=== PATIENT | male | born 1940 | race Caucasian/White ===

== ENCOUNTER 2016-11-26 10:17 | Outpatient (CLI) | payer MEDICARE, BC ==
--- NOTE | 2016-11-26 19:27 | XRAY Report ---
CHEST, PA AND LATERAL: 11/26/2016 CLINICAL HISTORY: Cough. COMPARISON: None. FINDINGS: Normal cardiac size is seen. Minimal prominence of the aortic arch is noted related to at herosclerosis. Mediastinum appears normal. Pulmonary parenchyma demonstrates minimal interstitial parenchymal disease about the right infrahilar region. This finding is of questionable age. Etiological considerations include mild scarring, mil d chronic bronchitis, and/or minimal bronchopneumonia. Recommend clinical correlation. A few minor granulomatous calcifications are seen about the left perihilar region. 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 Suggestion of minor old compression fracture of one of the lower thoracic vertebr ae. IMPRESSION: 1. MILD INTERSTITIAL PARENCHYMAL DISEASE IS SEEN IN THE RIGHT LOWER LOBE OF QUESTIONABLE AGE. ETIOL OGICAL CONSIDERATIONS INCLUDE MILD SCARRING, CHRONIC BRONCHITIS, AND/OR MINIMAL BRONCHOPNEUMONIA. RE COMMEND CLINICAL CORRELATION. 2. MINIMAL EVIDENCE OF OLD GRANULOMATOUS DISEASE. 3. MINOR OLD COMPRESSION FRACTURES NOTED IN ONE OF THE LOWER THORACIC VERTEBRAE. JOB #: [id number] EXT JOB #:[id number]
== END 2016-11-26 10:18 | disposition home or self-care (01) ==
LOC: DI 10:17
PROVIDERS: ATTEND Internal Medicine
DX: J84.9 Interstitial pulmonary disease, unspecified (principal); R63.4 Abnormal weight loss; Z79.899 Other long term (current) drug therapy; E78.5 Hyperlipidemia, unspecified; I10 Essential (primary) hypertension; M10.9 Gout, unspecified; Z12.5 Encounter for screening for malignant neoplasm of prostate
CPT/HCPCS: 36415; 71020; 80053; 80061; 82607; 83036; 84439; 84443; 84550; 85025; G0103; 84153

== ENCOUNTER 2016-11-26 10:39 | Outpatient (CLI) | payer MEDICARE, BC ==
[2016-11-26 11:30] LABS: BASOPHILS # (AUTO) 0.1 10^3/uL (0.0-0.1); EOSINOPHILS # (AUTO) 0.1 10^3/uL (0.0-0.7); EOSINOPHILS % (AUTO) 1.2 %; HCT - HEMATOCRIT 48.2 % (42.0-52.0); LYMPHOCYTES # (AUTO) 2.4 10^3/uL (1.5-3.5); LYMPHOCYTES % (AUTO) 35.8 %; MEAN CORPUSCULAR HEMOGLOBIN 34.1 pg (27.0-31.0); MEAN CORPUSCULAR HGB CONC 35.2 g/dL (32.0-36.0); MEAN CORPUSCULAR VOLUME 97.1 fL (80.0-94.0); MEAN PLATELET VOLUME 9.9 fL (7.4-11.4); MONOCYTES # (AUTO) 0.6 10^3/uL (0.0-1.0); MONOCYTES % (AUTO) 9.4 %; NEUTROPHILS # (AUTO) 3.6 10^3/uL (1.5-6.6); NEUTROPHILS % (AUTO) 52.6 %; NUCLEATED RED BLOOD CELLS AUTO 0.1 /100WBC; RED BLOOD COUNT 4.97 10^6/uL (4.70-6.10); RED CELL DISTRIBUTION WIDTH 13.7 % (12.0-15.0); UNCORRECTED WHITE BLOOD COUNT 6.8 x10^3/uL; WHITE BLOOD COUNT 6.8 x10^3/uL (4.8-10.8)
[2016-11-26 11:52] LABS: HEMOGLOBIN A1C 0.66 g/dL
[2016-11-26 12:00] LABS: ALBUMIN/GLOBULIN RATIO 1.4 (1.0-2.2); BILIRUBIN,TOTAL 1.3 mg/dL (0.2-1.0); BUN - BLOOD UREA NITROGEN 21 mg/dL (6-20); CARBON DIOXIDE - CO2 25 mmol/L (21-32); CHLORIDE 105 mmol/L (101-111); CHOL/HDL RATIO 4.1 (<5.0); CHOLESTEROL 199 mg/dL; CREATININE 0.9 mg/dL (0.6-1.2); GFR - MDRD 82 (>89); GLUCOSE 105 mg/dL (70-100); HDL CHOLESTEROL 49 mg/dL; LDL/HDL RATIO 2.8 (<3.6); POTASSIUM 4.3 mmol/L (3.5-5.0); SODIUM 139 mmol/L (135-145); TOTAL PROTEIN 7.3 g/dL (6.7-8.2); TRIGLYCERIDES 61 mg/dL; URIC ACID 5.3 mg/dL (2.6-7.2); VLDL CHOLESTEROL 12 mg/dL
[2016-11-26 12:43] LABS: THYROID STIMULATING HORMONE 1.4 uIU/mL (0.34-5.60)
== END 2016-11-26 10:40 | disposition home or self-care (01) ==
LOC: LAB 10:39
PROVIDERS: ATTEND Internal Medicine
DX: R63.4 Abnormal weight loss (principal); Z79.899 Other long term (current) drug therapy; Z12.5 Encounter for screening for malignant neoplasm of prostate; R73.9 Hyperglycemia, unspecified; E78.5 Hyperlipidemia, unspecified; I10 Essential (primary) hypertension; M10.9 Gout, unspecified
CPT/HCPCS: 36415; 80053; 80061; 82607; 83036; 84439; 84443; 84550; 85025; G0103; 84153

== ENCOUNTER 2016-11-30 08:00 | Outpatient (CLI) | payer MEDICARE | END 2016-11-30 08:01 | disposition home or self-care (01) | LOC: LAB.R 08:00 | PROVIDERS: ATTEND Internal Medicine | DX: R63.4 Abnormal weight loss (principal); I10 Essential (primary) hypertension; M10.9 Gout, unspecified; Z79.899 Other long term (current) drug therapy; Z12.5 Encounter for screening for malignant neoplasm of prostate; R73.9 Hyperglycemia, unspecified; E78.5 Hyperlipidemia, unspecified | CPT/HCPCS: 82270 ==

== ENCOUNTER 2017-04-25 06:19 | Day surgery (SDC) | payer MEDICARE, BC ==
[2017-04-25] MEDS ORDERED: ceFAZolin 2 GM/50 ML 2 GM/50 ML BAG IV ONE (06:40)
[2017-04-25] MEDS ORDERED: LACTATED RINGERS 1,000 ML IV ONE ×4 (06:56→11:04)
[2017-04-25] MEDS ORDERED: ePHEDrine 50 MG/ML AMP IVP ONE (08:20)
[2017-04-25] MEDS ORDERED: LIDOCAINE-MPF 2% 5 ML VIAL IM ONE (08:20)
[2017-04-25] MEDS ORDERED: ROCURONIUM 50 MG/5 ML VIAL IVP ONE (08:20)
[2017-04-25] MEDS ORDERED: PHENYLEPHRINE 50 MG/5 ML VIAL IV ONE (08:20)
[2017-04-25] MEDS ORDERED: NEOSTIGMINE 1 MG/1 ML 10 ML MDV IVP ONE (08:20)
[2017-04-25] MEDS ORDERED: PROPOFOL 200 MG/20 ML VIAL IVP ONE (08:20)
[2017-04-25] MEDS ORDERED: MIDAZOLAM 2 MG/2 ML VIAL IVP ONE (08:20)
[2017-04-25] MEDS ORDERED: GLYCOPYRROLATE 1 MG/5 ML VIAL IVP ONE (08:20)
[2017-04-25] MEDS ORDERED: KETOROLAC 30 MG/ML VIAL IVP ONE (08:20)
[2017-04-25] MEDS ORDERED: DEXAMETHASONE 4 MG/ML VIAL IVP ONE (08:20)
[2017-04-25] MEDS ORDERED: ONDANSETRON 4 MG/2 ML VIAL IVP ONE (08:20)
[2017-04-25] MEDS ORDERED: SUCCINYLCHOLINE 200 MG/10 ML VIAL IVP ONE (08:20)
[2017-04-25] MEDS ORDERED: fentaNYL 100 MCG/2 ML VIAL IVP ONE (08:20)
[2017-04-25] MEDS ORDERED: BUPIVACAINE 0.5% PF 30 ML VIAL SUBQ ONE ×2 (08:20)
--- NOTE | 2017-04-25 10:20 | OPERATIVE REPORT ---
Operative Report - General Planned Procedure: Laparoscopic TEP RIGHT inguinal herniorrhaphy Pre-Op Diagnosis: RIGHT inguinal herniorrhaphy Procedure Performed: Laparoscopic TEP RIGHT inguinal herniorrhaphy Post Op Diagnosis: Indirect RIGHT inguinal herniorrhaphy - Procedure Note Primary Surgeon: Brad Day MD Secondary Surgeon: Reagan Vines MD Anesthesia Provider: Nathanael Forbes Anesthesia Technique: General ET tube, Local (30 mL 1/2% marcaine) IV Fluids (mL): 2,000 Estimated Blood Loss (mL): 20 Urine Output (mL): 200 Complications: None. - Other Other Information/Narrative: OPERATIVE DESCRIPTION/REPORT: After verbal and written informed consent was obtained detailing the risks of infection, bleeding requiring transfusion with its risks, nerve injury, and , and after I met with the patient confirming the surgery and the site of the surgery, the patient was brought to the operative suite and placed supine on the operating table. Great care was taken to avoid pressure points to prevent pressure necrosis or nerve injury. Monitoring devices were applied along with TEDs and pneumatic compressive stockings (to prevent DVT). The patient received preoperative antibiotics for surgical prophylaxis. Nathanael Forbes sedated and induced general anesthesia and provided anesthesia care for the entirety of the case. The patient was prepped and draped in the usual sterile manner. With the patient draped my initials were clearly visible. A "time in" then confirmed that the paitient was identified with 3 identifiers ( name, date and medical record number), the history and physical was in the chart, the signed consent confirming the procedure was in the chart, the patient was in the correct position, the aforementioned prophylactic measures were in place or given, we had the correct personnel and equipment to complete the procedure and that anesthesia, surgery and nursing were given an opportunity to express any concerns. With the agreement of everyone in the room , we proceeded with the operation. A transverse skin incision was made below and to the right of the umbilicus to a length of approximately 3 cm. The incision was carried through the subcutaneous tissue. Bleeders were cauterized. The right rectus sheath was identified and incised lateral to the midline. The preperitoneal space was then developed following insertion of a Spacemaker balloon, which was inflated under direct vision. The balloon would not inflate fully on the right hand side and in order to get the right side of the balloon to inflate additional pressure was used to the point where the balloon popped but it still did not dissect the right hand side. Following removal of the Spacemaker balloon, a #10 trocar was placed in the preperitoneal space and the preperitoneal space was insufflated with CO2 to a steady state pressure of 12 mmHg. A 10 mm 30 degree laparoscope was inserted in the preperitoneal space. Two #5 trocars were placed in the lower midline but biased slightly to the left (to help improve triangulation) under direct vision and without incident. Landmarks including symphysis pubis, right José Luis ligament and right inferior epigastric vessels were identified. Dissection was then continued lateral to the transverse abdominis muscle. The internal ring was then explored for the presence of the indirect hernia sac and this was reduced under direct vision with traction and counter-traction. The sac was quite large and the dissection was consequently quite tedious. Once the sac was completely dissected, exploration of the medial space showed a medial defect suggesting the presence of weakness at the direct hernia site but I cannot say that there was a direct hernia. A large size Bard 3D mesh (Lot # [id number], Reference #[id number], use by date 2022-01-31) was placed in the preperitoneal space and anchored to the symphysis pubis with a SecureStrap device (Lot #[id number], use by date 12/2018). The mesh covered the internal ring as well as the potential direct inguinal hernia site. There was some bleeding coming from where the tack was placed and the mesh was folded back to look at the site. A small vessel was bleeding and the bleeding was stopped with the application of 2 vascular clips. The mesh was then re-tacked at the pubis and supero-medially to hold the mesh in place. No tacks were placed laterally. 10 mL of 1/2% Marcaine was injected into the preperitoneal space. The preperitoneal space was then deflated and during the deflation the mesh was watched to ensure that it was sandwiched nicely in place and did not change position. All trocars were withdrawn. The remaining 20 mL of 1/2% Marcaine was injected at all three incisions. The anterior fascial at the subumbilcal incision was closed using a 0 Vicryk figure-8 stitch. The skin incisions were closed with subcuticular 4-0 Monocryl suture. The prep was washed off and Mastisol and Steristrips were applied at all the incisions. At this point a time out was performed that confirmed that all the counts were correct, the procedure that was performed, the blood loss, the IV fluids administered, and the patients condition. The prep was washed off and Benzoin and Steristrips were applied. Having tolerated the procedure well, the patient was subsequently extubated and taken to recovery room in good and stable condition.
[2017-04-25 12:26] VITALS: BP 130/66
== END 2017-04-25 06:20 | disposition home or self-care (01) ==
LOC: SDS 06:19
PROVIDERS: ATTEND Surgery
PROC: 0YU54JZ Supplement Right Inguinal Region with Synthetic Substitute, Percutaneous Endoscopic Approach (ICD-10-PCS; principal; 2017-04-25 07:30)
DX: K40.90 Unilateral inguinal hernia, without obstruction or gangrene, not specified as recurrent (principal); I10 Essential (primary) hypertension; I48.91 Unspecified atrial fibrillation; Z87.891 Personal history of nicotine dependence
CPT/HCPCS: 49650; C1781; J0690; J7120

== ENCOUNTER 2019-12-14 11:21 | Outpatient (CLI) | payer MEDICARE, BC ==
--- NOTE | 2019-12-14 12:00 | XRAY Report ---
Reason: LONG LASTING BACK PAIN Procedure Date: 12/14/2019 Accession Number: [id number] / [id number] Procedure: XR - Lumbar Spine 2 View CPT Code: Final Report FULL RESULT: PROCEDURE: Lumbar Spine 2 View INDICATIONS: LONG LASTING BACK PAIN TECHNIQUE: 2 views of the lumbar spine were acquired. COMPARISON: None. FINDINGS: Bones: 5 [id number] vertebrae are present. There is grade IL5 on S1 retrolisthesis. There is otherwise normal bony alignment. No vertebral body compression fractures. No suspicious bony lesions. Degenerative change including intervertebral disc space narrowing, endplate sclerosis, osteophytosis, and facet sclerosis is present throughout the lumbar spine. Findings are most severe at L5-S1. Soft tissues: Overlying bowel gas pattern is normal. Scattered atheromatous calcifications are present throughout the abdominal aorta. The aorta measures 3.3 cm in AP diameter. IMPRESSION: 1. 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 2. Aortic atherosclerosis and mild fusiform aneurysmal dilatation of the abdominal aorta. Reviewed by: Kirsten Soto MD on 12/14/2019 11:58 AM PDT Approved by: Kirsten Soto MD on 12/14/2019 11:58 AM PDT Station ID: [id number]
== END 2019-12-14 11:22 | disposition home or self-care (01) ==
LOC: DI 11:21
PROVIDERS: ATTEND Internal Medicine
DX: M47.816 Spondylosis without myelopathy or radiculopathy, lumbar region (principal); M47.817 Spondylosis without myelopathy or radiculopathy, lumbosacral region; M51.36 Other intervertebral disc degeneration, lumbar region; M51.37 Other intervertebral disc degeneration, lumbosacral region; M43.17 Spondylolisthesis, lumbosacral region; I71.4 Abdominal aortic aneurysm, without rupture
CPT/HCPCS: 72100

== ENCOUNTER 2022-05-27 08:00 | Outpatient (CLI) | payer MEDICARE, BC ==
[2022-05-27 16:12] LABS: BASOPHILS # (AUTO) 0.1 10^3/uL (0.0-0.1); BASOPHILS % (AUTO) 0.8 %; EOSINOPHILS # (AUTO) 0.2 10^3/uL (0.0-0.7); EOSINOPHILS % (AUTO) 2.5 %; HCT - HEMATOCRIT 43.5 % (42.0-52.0); HGB - HEMOGLOBIN 14.8 g/dL (14.0-18.0); LYMPHOCYTES # (AUTO) 2.2 10^3/uL (1.5-3.5); LYMPHOCYTES % (AUTO) 31.1 %; MEAN CORPUSCULAR HEMOGLOBIN 32.6 pg (27.0-31.0); MEAN CORPUSCULAR VOLUME 95.8 fL (80.0-94.0); MEAN PLATELET VOLUME 11.4 fL (7.4-11.4); MONOCYTES # (AUTO) 0.8 10^3/uL (0.0-1.0); MONOCYTES % (AUTO) 10.8 %; NEUTROPHILS # (AUTO) 3.9 10^3/uL (1.5-6.6); NEUTROPHILS % (AUTO) 54.7 %; PLT - PLATELET COUNT 154 10^3/uL (130-450); RED BLOOD COUNT 4.54 10^6/uL (4.70-6.10); WHITE BLOOD COUNT 7.1 x10^3/uL (4.8-10.8)
[2022-05-27 16:29] LABS: ALBUMIN 3.9 g/dL (3.2-5.5); ALBUMIN/GLOBULIN RATIO 1.1 (1.0-2.2); ALKALINE PHOSPHATASE 127 IU/L (42-121); ALT ALANINE AMINOTRANSFERASE 24 IU/L (10-60); AST ASPARTATE AMINOTRANSFERASE 27 IU/L (10-42); BUN - BLOOD UREA NITROGEN 19 mg/dL (6-20); CARBON DIOXIDE - CO2 26 mmol/L (21-32); CHLORIDE 105 mmol/L (101-111); CHOL/HDL RATIO 4.5 (<5.0); CHOLESTEROL 199 mg/dL; GFR - MDRD 72 (>89); GLUCOSE 114 mg/dL (70-100); HDL CHOLESTEROL 44 mg/dL; LDL CHOLESTEROL,CALCULATED 139 mg/dL; LDL/HDL RATIO 3.2 (<3.6); POTASSIUM 4.2 mmol/L (3.5-5.0); SODIUM 139 mmol/L (135-145); TOTAL PROTEIN 7.6 g/dL (6.7-8.2); TRIGLYCERIDES 80 mg/dL; URIC ACID 3.8 mg/dL (2.6-7.2); VLDL CHOLESTEROL 16 mg/dL
[2022-05-27 16:34] LABS: PSA TOTAL 1.151 ng/mL (0.000-2.000)
[2022-05-27 20:56] LABS: ESTIMATED AVERAGE GLUCOSE 100 mg/dL (70-100); HEMOGLOBIN A1c% 5.1 % (4.27-6.07)
== END 2022-05-27 23:59 | disposition home or self-care (01) ==
LOC: LAB.R 08:00
PROVIDERS: ATTEND Internal Medicine
DX: Z00.00 Encounter for general adult medical examination without abnormal findings (principal); D64.9 Anemia, unspecified; I48.91 Unspecified atrial fibrillation; C44.91 Basal cell carcinoma of skin, unspecified; M10.9 Gout, unspecified; R73.9 Hyperglycemia, unspecified; E78.5 Hyperlipidemia, unspecified; I10 Essential (primary) hypertension; G47.33 Obstructive sleep apnea (adult) (pediatric); N40.0 Benign prostatic hyperplasia without lower urinary tract symptoms; L40.50 Arthropathic psoriasis, unspecified
CPT/HCPCS: 80053; 80061; 83036; 83721; 84153; 84443; 84550; 85025

== ENCOUNTER 2023-01-23 08:00 | Outpatient (CLI) | payer MEDICARE, BC ==
[2023-01-23 15:57] LABS: BILIRUBIN,URINE NEGATIVE (NEGATIVE); GLUCOSE, URINE (UA) NEGATIVE (NEGATIVE); KETONES,URINE (UA) NEGATIVE (NEGATIVE); LEUKOCYTE ESTERASE, URINE NEGATIVE (NEGATIVE); NITRITE,URINE NEGATIVE (NEGATIVE); OCCULT BLOOD,URINE NEGATIVE (NEGATIVE); PH,URINE 5.5 PH (5.0-7.5); PROTEIN,URINE NEGATIVE (NEGATIVE); UROBILINOGEN,URINE 0.2 (NORMAL) E.U./dL (NORMAL)
[2023-01-23 16:06] LABS: CLARITY,URINE CLEAR (CLEAR)
[2023-01-23 16:29] LABS: BACTERIA,URINE None Seen /HPF (None Seen); RBC,URINE 0-5 /HPF (0-5); SQUAMOUS EPITHELIAL CELL,UR NONE SEEN (<= Few); WBC,URINE 0-3 /HPF (0-3)
--- NOTE | 2023-01-23 16:52 | XRAY Report ---
PROCEDURE: Abdomen 1 View (KUB) INDICATIONS: KIDNEY STONES TECHNIQUE: 2 views of the abdomen were acquired. COMPARISON: None. FINDINGS: Surgical changes and devices: None. Bowel: No pneumoperitoneum. The bowel gas pattern is normal. Stool load within normal limits. Soft tissues: No masses; visualized solid organ contours appear normal in size. 8 mm calcification i s seen projecting in the region of lower pole left kidney. Bones: No suspicious bony abnormalities. IMPRESSION: 1. No bowel obstruction or gross peritoneal free air. 2. Suggestion of 8 mm stone in the region of lower pole left kidney. No definite right-sided renal ca lcification is seen. Reviewed by: Shiraz Cabrera MD on 01/23/2023 4:51 PM PDT Approved by: Shiraz Cabrera MD on 01/23/2023 4:51 PM PDT Station ID: [id number]
== END 2023-01-23 23:59 | disposition home or self-care (01) ==
LOC: DI.WOS 08:00
PROVIDERS: ATTEND Urology
DX: N20.0 Calculus of kidney (principal)
CPT/HCPCS: 81001; 87086

== ENCOUNTER 2023-01-31 12:48 | Outpatient (CLI) | payer MEDICARE, BC ==
[~2023-01-31 12:48] MED LIST: GADOBUTROL 10 MMOL/10 ML VIAL ONE
[2023-01-31 13:27] LABS: CREATININE 1.5 mg/dL (0.6-1.3)
[2023-01-31] MEDS ORDERED: GADOBUTROL 10 MMOL/10 ML VIAL IVP ONE (15:03)
--- NOTE | 2023-02-06 14:51 | MRI Report ---
PROCEDURE: BRAIN W/WO INDICATIONS: BENIGN NEOPLASM OF BRAIN, CONTRAST: GADAVIST 9.1 ML TECHNIQUE: Noncontrast axial T1 spin echo, axial T2 fast spin echo, sagittal and axial FLAIR, coronal T2 fast sp in echo, axial gradient echo, axial diffusion and ADC through the brain. After the administration of contrast, axial and coronal T1 spin echo with fat saturation through the brain. COMPARISON: None. FINDINGS: Image quality: Excellent. CSF spaces: Basal cisterns are patent. No extra-axial fluid collections. Ventricles are normal in size and shape. Brain: No midline shift. No intracranial bleeds or masses. No abnormal intracranial enhancement. There is cerebral volume loss for age. There is very mild, age-appropriate periventricular white mat ter chronic small vessel ischemic change. 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 The brainstem appears normal. Diffusion-weighted images demonstrate no acute ischemic insults. No chronic ischemic insult s. Normal intravascular flow voids are present. Skull and face: Calvarial marrow is normal in signal. Orbits appear normal. Sinuses: Sinuses and mastoids appear clear. IMPRESSION: 1. 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 2. Age-related volume loss and very mild, age-appropriate small vessel ischemic change. 3. No abnormal enhancement. No acute intracranial abnormality. Reviewed by: Abdulaziz Vargas MD on 02/06/2023 2:49 PM PDT Approved by: Abdulaziz Vargas MD on 02/06/2023 2:49 PM PDT Station ID: [id number]
== END 2023-01-31 12:49 | disposition home or self-care (01) ==
LOC: LAB 12:48
PROVIDERS: ATTEND Internal Medicine
DX: D33.2 Benign neoplasm of brain, unspecified (principal); Z79.899 Other long term (current) drug therapy; G93.89 Other specified disorders of brain; G31.89 Other specified degenerative diseases of nervous system; I67.82 Cerebral ischemia
CPT/HCPCS: 36415; 70553; 82565; A9585

== ENCOUNTER 2023-02-24 06:26 | Day surgery (SDC) | payer MEDICARE, BC ==
[~2023-02-24 06:26] MED LIST changes: -GADOBUTROL 10 MMOL/10 ML VIAL ONE; +ceFAZolin 2 GM VIAL ONE
[2023-02-24] MEDS ORDERED: LACTATED RINGERS 1,000 ML IV ONE ×2 (07:08→08:42)
[2023-02-24] MEDS ORDERED: NALOXONE 0.4 MG/ML VIAL IVP PRN (07:17)
[2023-02-24] MEDS ORDERED: HYDROmorphone 0.5 MG/0.5 ML SYRINGE IVP PRN (07:17)
[2023-02-24] MEDS ORDERED: fentaNYL 100 MCG/2 ML VIAL IVP PRN (07:17)
[2023-02-24] MEDS ORDERED: ONDANSETRON 4 MG/2 ML VIAL IVP PRN ×2 (07:17→08:54)
[2023-02-24] MEDS ORDERED: ePHEDrine 50 MG/ML VIAL IVP PRN (07:17)
[2023-02-24] MEDS ORDERED: ATROPINE ABBOJECT 1 MG/10 ML SYRINGE IVP PRN (07:17)
--- NOTE | 2023-02-24 07:17 | ANESTHESIA ---
Pre-Anesthesia VS, & Labs - Diagnosis L nephrolithiasis - Procedure L ESWL Vital Signs: Temp Pulse Resp BP Pulse Ox O2 Flow Rate 36 C L 51 L 24 150/88 H 97 02/24/23 06:45 02/24/23 06:45 02/24/23 06:45 02/24/23 06:45 02/24/23 06:45 Height: 5 ft 7 in Weight (kg): 91.2 kg Body Mass Index: 31.4 BMI Classification: Obese - NPO >8 hours - Lab Results Lab results reviewed: Yes Home Medications and Allergies Home Medications: Ambulatory Orders Carisoprodol [Soma] 350 mg PO TID PRN 02/18/23 Fluocinolone/Emol Comb No.65 [Synalar 0.025% Ointment Kit] 1 applic TP PRN PRN 02/18/23 Ibuprofen [Motrin] 600 mg PO Q6H PRN 02/18/23 Metoprolol Succinate [Toprol Xl] 25 mg PO DAILY 02/18/23 Vit A/Vit C/Vit E/Zinc/Copper [Preservision Areds Softgel] 1 each PO BID 02/18/23 allopurinoL [Allopurinol] 300 mg PO QPM 02/18/23 amLODIPine [Norvasc] 5 mg PO DAILY 02/18/23 cephALEXin [Keflex] 1 cap PO ONCE 02/24/23 Aspirin [Aspir 81] 81 mg ORAL DAILY 02/18/14 Fluocinonide/Emollient Base [Fluocinonide-E 0.05% Cream] 60 g TOP DAILY PRN 02/18/14 lisinopriL [Lisinopril] 40 mg PO BID 02/18/14 Multivitamin [Multiple Vitamins] 1 each PO DAILY 04/10/17 Carisoprodol [Soma] 350 mg PO TID PRN 02/18/23 Fluocinolone/Emol Comb No.65 [Synalar 0.025% Ointment Kit] 1 applic TP PRN PRN 02/18/23 Ibuprofen [Motrin] 600 mg PO Q6H PRN 02/18/23 Metoprolol Succinate [Toprol Xl] 25 mg PO DAILY 02/18/23 Vit A/Vit C/Vit E/Zinc/Copper [Preservision Areds Softgel] 1 each PO BID 02/18/23 allopurinoL [Allopurinol] 300 mg PO QPM 02/18/23 amLODIPine [Norvasc] 5 mg PO DAILY 02/18/23 cephALEXin [Keflex] 1 cap PO ONCE 02/24/23 Allergies/Adverse Reactions: Allergies Allergy/AdvReac Type Severity Reaction Status Date / Time doxazosin Allergy Unknown Verified 02/21/23 13:08 indomethacin Allergy Unknown Verified 02/21/23 13:08 meloxicam Allergy Unknown Verified 02/21/23 13:08 nortriptyline Allergy Unknown Verified 02/21/23 13:08 oxybutynin Allergy Unknown Verified 02/21/23 13:08 Anes History & Medical History - Anesthetic History Anesthesia Complications: reports: No previous complications Family history of Anesthesia Complications: Denies Family history of Malignant Hyperthermia: Denies - Medical History Cardiovascular: reports: Hypertension, Atrial fibrillation Pulmonary: reports: None Gastrointestinal: reports: None Urinary: reports: Kidney stones Musculoskeletal: reports: Gout, Chronic back pain, Other Endocrine/Autoimmune: reports: None Skin: reports: Psoriasis Psychosocial: reports: Alcohol - Surgical History General: reports: Colonoscopy, EGD, Other Eyes Ears Nose Throat (EENT): reports: Tonsil/Adenoidectomy Urologic: reports: Prostatic surgery Orthopedic: reports: Arthroscopic surgery, Other Exam General: Alert, Oriented x3, Cooperative Dental: WNL Mouth Openin Fingerbreadth Neck Mobility: Normal Mallampati classification: II Thyromental Distance: 4-6 cm Respiratory: Lungs clear Plan Anesthesia Type: General Consent for Procedure(s) Verified and Reviewed: Yes Code Status: Attempt Resuscitation ASA classification: 3-Severe systemic disease Is this case an emergency?: No
[2023-02-24] MEDS ORDERED: fentaNYL 100 MCG/2 ML VIAL ONE (07:33)
[2023-02-24] MEDS ORDERED: PROPOFOL 500 MG/50 ML 500 MG/50 ML VIAL ONE (07:33)
[2023-02-24] MEDS ORDERED: LIDOCAINE 2% URO-JET 5 ML SYRINGE UR ONE (07:34)
[2023-02-24] MEDS ORDERED: iohexoL-240 10 ML VIAL IVP ONE (07:34)
[2023-02-24] MEDS ORDERED: LACTATED RINGERS 1,000 ML IV SCH (08:00)
[2023-02-24] MEDS ORDERED: ePHEDrine 50 MG/ML VIAL IVP ONE (08:08)
[2023-02-24] MEDS ORDERED: HYDROcod/ACETAM 5/325 MG TABLET PO PRN (08:54)
--- NOTE | 2023-02-24 08:59 | Discharge Plan ---
Discharge Plan Problem Reviewed?: Yes Disposition: Home, Self Care Prescriptions: Docusate Sodium 100Mg Capsule [Colace 100Mg Capsule] 100 mg PO DAILY #7 cap HYDROcod/ACETAM 5/325 [[place] 5/325] 1 tab PO Q4H PRN #10 tablet PRN Reason: Pain Diet: Regular Activity Restrictions: No Restrictions Instruction Topics: Lithotripsy Shock Wave Additional Instructions or Follow Up instructions: You may see some blood or dust in your urine, this is normal Take pain medications as needed Call if fever >100.4, unable to urinate, or pain not controlled with pain medications. You will be contacted for followup in about a month No Smoking: If you smoke, Please STOP! Call for help. Follow-up with: Myrna Strodu MD [Primary Care Provider] - Joe Hays MD [Provider Admit Priv/Credential] -
--- NOTE | 2023-02-24 09:04 | OPERATIVE REPORT ---
Operative Report - General Procedure Date: 02/24/23 Planned Procedure: LEFT Extracorporeal shock wave lithotripsy, flexible cystoscopy Pre-Op Diagnosis: Left kidney stone, BPH Procedure Performed: LEFT Extracorporeal shock wave lithotripsy, flexible cystoscopy Post Op Diagnosis: Left kidney stone, BPH - Procedure Note Primary Surgeon: Saúl Anesthesia Technique: General LMA Estimated Blood Loss (mL): 0 Indications: Left kidney stone, BPH Findings: Radioopaque 8mm left proximal ureteral stone, moderate dissolution 2500 shocks Regrowth of prostate tissue in lumen Complications: none - Other Other Information/Narrative: After informed consent was obtained, the patient was brought to the operating room and anesthetized per anesthesia protocols he was prepped in the usual sterile fashion and draped accordingly. A timeout was performed reconfirming the patient procedure and laterality. Using an x-ray we could localize his stone which was radiopaque and appeared in the left proximal ureter. Using a Dornier shockwave machine we sent an appropriate waves at the stone at a rate of 1 Hz and then slowly increasing to a rate of 1.2 Hz. 2500 shocks were sent to the stone. It did appear to break up and become looser and classification analyst. There was still some radiopacity seen. At the same time, a flexible cystoscope was advanced easily into the urinary bladder. We noticed that he had no urethral stricture. His prostate did have some nodularity with intraluminal invagination from the left and the right side. This look like regrowth of normal benign prostate tissue after a TURP. His bladder had no masses lesions or other concerns but it was mild to moderately trabeculated. The ureteral orifices were orthotopic in nature. This included the procedure and the patient tolerated procedure well. He was reversed from anesthesia and brought to the PACU without further incident. All surgical counts were correct. He will follow-up in 1 month's time for an x-ray to confirm stone dissolution. And to discuss further options for his BPH.
[2023-02-24 09:25] VITALS: BP 143/82; O2SAT 97
--- NOTE | 2023-02-24 15:21 | ANESTHESIA POST OP EVALUATION ---
Anesthesia Post Eval - Post Anesthesia Eval Vitals: Last Vital Signs Temp 36.4 C L 02/24/23 09:20 Pulse 63 02/24/23 09:20 Resp 14 02/24/23 09:20 BP 143/82 H 02/24/23 09:20 Pulse Ox 97 02/24/23 09:20 O2 Flow Rate CV Function Including HR & BP: Stable Pain Control: Satisfactory Nausea & Vomiting: Negative Mental Status: Baseline Respiratory Status: Airway Patent Hydration Status: Satisfactory Anesthesia Complications: None
== END 2023-02-24 06:27 | disposition home or self-care (01) ==
LOC: SDS 06:26
PROVIDERS: ATTEND Urology
DX: N20.0 Calculus of kidney (principal); N32.89 Other specified disorders of bladder; N40.1 Benign prostatic hyperplasia with lower urinary tract symptoms; R35.0 Frequency of micturition; E66.9 Obesity, unspecified; I10 Essential (primary) hypertension; G47.33 Obstructive sleep apnea (adult) (pediatric); Z68.31 Body mass index [BMI] 31.0-31.9, adult
CPT/HCPCS: 50590; J7120; Q9966

== ENCOUNTER 2023-03-20 08:00 | Outpatient (CLI) | payer MEDICARE, BC ==
--- NOTE | 2023-03-20 16:35 | XRAY Report ---
PROCEDURE: Abdomen 1 View (KUB) INDICATIONS: POST LITHROTRIPSY, HISTORY LEFT KIDNEY STONES TECHNIQUE: One view abdomen. COMPARISON: X-ray abdomen, 01/23/2023.. FINDINGS: Bowel gas pattern is nonobstructive. Visualized solid organs are normal in size. Degenerati ve changes in lumbar spine. Renal contours are obscured by overlying bowel content. IMPRESSION: Nonobstructive bowel gas pattern. Reviewed by: Noemi Lozada MD on 03/20/2023 4:34 PM PDT Approved by: Noemi Lozada MD on 03/20/2023 4:34 PM PDT Station ID: [id number]
== END 2023-03-20 23:59 | disposition home or self-care (01) ==
LOC: DI.WOS 08:00
PROVIDERS: ATTEND Urology
DX: N20.0 Calculus of kidney (principal)

== ENCOUNTER 2023-06-11 12:09 | Outpatient (CLI) | payer MEDICARE, BC ==
[2023-06-11 12:43] LABS: ALBUMIN/GLOBULIN RATIO 1.3 (1.0-2.2); BILIRUBIN,TOTAL 0.7 mg/dL (0.2-1.0); CALCIUM 9.2 mg/dL (8.5-10.3); CREATININE 1.4 mg/dL (0.6-1.3); POTASSIUM 4.2 mmol/L (3.5-4.5)
== END 2023-06-11 12:10 | disposition home or self-care (01) ==
LOC: LAB 12:09
PROVIDERS: ATTEND Urology
DX: R94.4 Abnormal results of kidney function studies (principal)
CPT/HCPCS: 36415; 80053

== ENCOUNTER 2023-06-25 10:33 | Outpatient (CLI) | payer MEDICARE, BC ==
--- NOTE | 2023-06-25 15:38 | Ultrasound Report ---
PROCEDURE: Retroperitoneal INDICATIONS: ELEVATED CR TECHNIQUE: Real-time scanning was performed of the retroperitoneal organs, with image documentation. COMPARISON: None. FINDINGS: Kidneys: Kidneys are normal in size. Right kidney measures 10.7 cm long; left kidney measures 11.6 cm long. Right renal cortical thickness is 1.3 cm; left renal cortical thickness is 1.7 cm. No yefri d masses, hydronephrosis, or nephrolithiasis. There are multiple simple bilateral renal cysts. On th e right, the largest measures 3.8 cm in diameter and on the left the largest measures 6.[address] There is a prominent left extrarenal pelvis. Bladder: Pre-void bladder volume is 315.3 mL. Post-void residual is 12.2 mL. Pre-void images demon strate no intraluminal masses or stones. On pre-void images, bilateral ureteral jets are noted with color Doppler interrogation. (Of note, ureteral jets may not be detectable in up to 25% of cases due to insufficient differences in specific gravity between ureteral and bladder urine). Miscellaneous: No free abdominal fluid. IMPRESSION: 1. No hydronephrosis or nephrolithiasis. 2. Bilateral simple renal cysts. 3. Trace post void residual. Reviewed by: Kirsten Soto MD on 06/25/2023 3:36 PM PST Approved by: Kirsten Soto MD on 06/25/2023 3:36 PM PST Station ID: [id number]
== END 2023-06-25 10:34 | disposition home or self-care (01) ==
LOC: DI 10:33
PROVIDERS: ATTEND Urology
DX: R79.89 Other specified abnormal findings of blood chemistry (principal); N28.1 Cyst of kidney, acquired; R33.9 Retention of urine, unspecified

== ENCOUNTER 2023-06-29 12:10 | Outpatient (CLI) | payer MEDICARE, BC ==
[2023-06-29 12:31] LABS: BASOPHILS # (AUTO) 0.1 10^3/uL (0.0-0.1); BASOPHILS % (AUTO) 0.6 %; EOSINOPHILS # (AUTO) 0.2 10^3/uL (0.0-0.7); EOSINOPHILS % (AUTO) 2.6 %; HCT - HEMATOCRIT 40.5 % (42.0-52.0); HGB - HEMOGLOBIN 13.8 g/dL (14.0-18.0); LYMPHOCYTES # (AUTO) 2.8 10^3/uL (1.5-3.5); LYMPHOCYTES % (AUTO) 31.4 %; MEAN CORPUSCULAR HEMOGLOBIN 33.6 pg (27.0-31.0); MEAN CORPUSCULAR HGB CONC 34.1 g/dL (32.0-36.0); MEAN CORPUSCULAR VOLUME 98.5 fL (80.0-94.0); MEAN PLATELET VOLUME 11.1 fL (7.4-11.4); MONOCYTES # (AUTO) 0.9 10^3/uL (0.0-1.0); MONOCYTES % (AUTO) 10.4 %; NEUTROPHILS # (AUTO) 4.9 10^3/uL (1.5-6.6); NEUTROPHILS % (AUTO) 54.6 %; PLT - PLATELET COUNT 176 10^3/uL (130-450); RED BLOOD COUNT 4.11 10^6/uL (4.70-6.10); RED CELL DISTRIBUTION WIDTH 13.5 % (12.0-15.0)
[2023-06-29 12:45] LABS: INR 1.2 (0.8-1.2); PT - PROTHROMBIN TIME 13.6 secs (9.9-12.6)
[2023-06-29 12:52] LABS: CALCIUM 9.1 mg/dL (8.5-10.3); CREATININE 1.3 mg/dL (0.6-1.3); POTASSIUM 4.4 mmol/L (3.5-4.5)
== END 2023-06-29 12:11 | disposition home or self-care (01) ==
LOC: LAB 12:10
PROVIDERS: ATTEND Specialist
DX: I48.0 Paroxysmal atrial fibrillation (principal)
CPT/HCPCS: 36415; 80048; 85025; 85610